=== PATIENT | male | born 1990 | race Hispanic/Latino ===

== ENCOUNTER 2017-10-11 11:19 | Emergency (ER) | payer OTHER ==
[~2017-10-11] VITALS: Ht 177.8 cm; Wt 79.4 kg
== END 2017-10-11 11:48 | disposition home or self-care (01) ==
LOC: FSED 11:19
DX: S01.112A Laceration without foreign body of left eyelid and periocular area, initial encounter (principal); W50.0XXA Accidental hit or strike by another person, initial encounter; Y93.64 Activity, baseball; Y92.320 Baseball field as the place of occurrence of the external cause
CPT/HCPCS: 96372; 99282

== ENCOUNTER 2018-01-18 04:57 | Emergency (ER) | payer OTHER ==
[~2018-01-18] VITALS: Ht 177.8 cm; Wt 81.6 kg
[2018-01-18] MEDS ORDERED: KETOROLAC TROMETHAMINE 30 MG/ML VIAL IM STA (05:30)
--- NOTE | 2018-01-18 06:07 | Diagnostic Imaging Report ---
L SPINE 2-3 VEWS - HOPD HISTORY: Pain COMPARISON: None FINDINGS: Bones: No displaced fracture. Mild dextrorotoscoliosis. Joints: The joint spaces are well-maintained. Soft tissues: The soft tissues appear unremarkable. IMPRESSION: No acute radiographic abnormality. Signed by: Dr. Wesley Tomas M.D. on 01/18/2018 6:04 AM
[2018-01-18] MEDS ORDERED: MOTRIN200 MG PO (06:17)
[2018-01-18] MEDS ORDERED: CYCLOBENZAPRINE5 MG PO (06:19)
== END 2018-01-18 06:27 | disposition home or self-care (01) ==
LOC: FSED 04:57
DX: M54.5 Low back pain (principal); S39.012A Strain of muscle, fascia and tendon of lower back, initial encounter; Y93.67 Activity, basketball
CPT/HCPCS: 72100; 99283; J1885